=== PATIENT | female | born 1960 | race Caucasian/White ===

== ENCOUNTER → 2017-02-24 | Outpatient (CLI) | payer OTHER | LOC: MAMMO 09:57 | DX: Z12.31 Encounter for screening mammogram for malignant neoplasm of breast (principal) ==

== ENCOUNTER → 2018-03-31 | Outpatient (CLI) | payer BC, OTHER ==
--- NOTE | 2018-03-31 13:26 | US ---
EXAM DESCRIPTION: Abdomen,Complete: Ultrasound. CLINICAL HISTORY: Unspecified ABDOMINAL PAIN COMPARISON: None Available. TECHNIQUE: Transabdominal scannin-dimensional and Doppler modes. FINDINGS: Gallbladder: No stones or sludge. No wall thickening 1.9 mm. No fluid. Nontender with transducer pressure. Common bile duct: 3.0 mm, normal caliber. Liver: Normal echogenicity. Normal caliber of the portal vein and hepatopedal flow. 15.6 cm right lobe craniocaudal. Normal vascularity. Smooth capsule. Pancreas: Normal size and echogenicity. Duct not seen.. Abdominal aorta: Normal caliber from the proximal segment to the bifurcation. IVC: visualized; normal caliber. Spleen normal echogenicity; long axis measurement is 9.2 cm. Right kidney: 10.0 cm long axis. Normal cortical echogenicity and thickness. No hydronephrosis.. Left kidney: 9.2 cm long axis. Normal cortical echogenicity and thickness. No hydronephrosis. IMPRESSION: Normal ultrasound of the abdomen. Normal size and echogenicity of the abdominal organs. No ascites. Normal vascularity. Electronically signed by: Cabrera Morrison MD 03/31/2018 1:25 PM CDT
== END ==
LOC: US 07:55
PROVIDERS: ATTEND General Practice
DX: R10.9 Unspecified abdominal pain (principal)

== ENCOUNTER → 2018-05-04 | Outpatient (CLI) | payer BC ==
--- NOTE | 2018-05-08 09:38 | MAM ---
EXAM DESCRIPTION: 3D Screening BILATERAL : Digital Mammography. CLINICAL HISTORY: 57 years Female SCREEN . No family history or personal history of breast cancer. Childbirth. Hysterectomy. Currently on HRT. Bilateral breast augmentation. Lifetime risk of developing breast cancer (Tyrer-Cuzick model) is 11.4 %. COMPARISON: 2-D digital screening bilateral study 02/24/2017. TECHNIQUE: Bilateral CC and MLO projection full-field images, with Sky Implant Displacement Digital tomosynthesis mammographic technique. Bilateral digital 2-D full-field MLO RICKY images. CAD not utilized. Bilateral 2-D digital full-field images, MLO and CC projections, non-displaced, with CAD. FINDINGS: The breast parenchymal density pattern is: Extremely dense breast tissue, which lowers the sensitivity of mammography. No skin thickening or nipple retraction. Bilateral axillary lymph nodes. Bilateral subpectoral saline implants. Capsules appear intact where seen. Bilateral small microcalcifications solitary.. No new focal, stellate mass or density, focal asymmetry , and no suspicious microcalcifications bilaterally. Stable mammograms compared to prior study. Taking into account, differences in mammographic technique. IMPRESSION: BI-RADS CATEGORY: 2 - BENIGN FINDINGS. FOLLOW UP: Routine digital bilateral screening, one year interval from April 2018. Written communication explaining the IMPRESSION and follow-up, will be mailed to the patient and referring health care provider. According to the [employer], yearly mammograms are recommended starting at age 40 and continuing as long as a woman is in good health. Any breast change noted on a breast self-exam should be reported promptly to the patient's healthcare provider. Breast MRI is recommended for women with an approximately 20-25% or greater lifetime risk of breast cancer, including women with a strong family history of breast or ovarian cancer and women who have been treated for Hodgkin's disease. A negative mammographic report should not delay tissue diagnosis in patients with significant clinical history or physical findings. Extremely dense breast tissue limits the sensitivity of digital mammography. Electronically signed by: Cabrera Morrison MD 05/08/2018 9:37 AM CDT
== END ==
LOC: MAMMO 11:30
PROVIDERS: ATTEND General Practice
DX: Z12.31 Encounter for screening mammogram for malignant neoplasm of breast (principal)

== ENCOUNTER 2019-03-06 21:16 | Emergency (ER) | payer BC ==
--- NOTE | 2019-03-06 22:19 | ED.PDOC ---
History of Present Illness - General Chief Complaint: Eye Problems Stated Complaint: seeing red color with left eye Time Seen by Provider: 03/06/19 22:14 Source: patient Exam Limitations: no limitations - History of Present Illness Initial Comments: patient comes in today for sudden vision change the left eye. Patient states that the vision change began 2 hours ago. Patient states that first it looked like a worm was crawling around her visual field and now it looks almost like the lens has blood that she is trying to see through. Patient felt like her vision was about normal although on vision testing here in the emergency room it is slightly decreased at 20/70. 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 Her father suffered a severe similar symptoms and did have a retinal attachment as well. Patient has no discharge and denies any other symptomatic systemic symptoms. She has no headache, altered LOC, or elevations of blood pressures. She sees Dr. Glover from opthomology Timing/Duration: abrupt Severity: severe EENT Location: eye (L) Prearrival Treatment: no prearrival treatment Improving Factors: nothing Worsening Factors: nothing Allergies/Adverse Reactions: Allergies NO KNOWN ALLERGY Allergy (Verified 03/06/19 21:31) Home Medications: Ambulatory Orders Atorvastatin Calcium [Lipitor] 10 mg PO DAILY 03/06/19 Estradiol 0.5 mg PO DAILY 03/06/19 Latanoprost 03/06/19 Levothyroxine Sodium [Synthroid] 0.075 mg PO 0700 03/06/19 Review of Systems - Review of Systems Constitutional: States: no symptoms reported. Denies: chills, fever EENTM: States: see HPI, blurred vision. Denies: eye pain, tearing, double vision Respiratory: States: no symptoms reported. Denies: cough, short of breath, wheezing Cardiology: States: no symptoms reported. Denies: chest pain, palpitations Gastrointestinal/Abdominal: States: no symptoms reported. Denies: abdominal pain, diarrhea, nausea, vomiting Genitourinary: States: no symptoms reported Musculoskeletal: States: no symptoms reported Past Medical History (General) - Patient Medical History Hx Thyroid Disease: Yes Hx Diabetes: No Surgical History: Hysterectomy - Vaccination History Immunizations Up to Date: Yes - Female History Patient is a Female of Child Bearing Age (10 -59 yrs old): No - Triage Comment ED Triage Comment: seeing blood-like smear with left eye, denies pain Family Medical History - Family History Father Family History: Unknown Physical Exam - Physical Exam General Appearance: Alert, Anxious, No apparent distress Eye Exam: right normal, left other - unable to see clear disc on fundoscopic exam, PERRL Neck: non-tender, full range of motion, supple Cardiovascular/Respiratory: regular rate, rhythm, no M/R/G, normal peripheral pulses, no JVD, normal breath sounds, no respiratory distress Abdominal Exam: non-tender Neurologic: alert, oriented x 3 Comments: vision with glasses is 20/40 on the right and 20/70 on the left. slight visual field deficit at L bottom corner. EOMI, no tenderness to the tenriism and no swelling, injection, or discharge Progress - Progress Progress: 03/06/19 23:17 called was placed to her Optho Dr. Glover [phone] and His sales promotion officer coverage returned call. Dr. Solis states it was appropriate to have her follow up in the am. If for some reason Dr. Glover is unable to see her in the morning he will be happy to see her but no acute eval or other treatment needed at this time. Departure - Departure Clinical Impression: Visual disturbance Disposition: Discharge to Home or Self Care Condition: Fair Departure Forms: ED Discharge - Pt. Copy, Patient Portal Self Enrollment Instructions: DI for Eye Pain Referrals: Federico Pickens MD [Primary Care Provider] - 1-2 Weeks Home Medications: Ambulatory Orders Atorvastatin Calcium [Lipitor] 10 mg PO DAILY 03/06/19 Estradiol 0.5 mg PO DAILY 03/06/19 Latanoprost 03/06/19 Levothyroxine Sodium [Synthroid] 0.075 mg PO 0700 03/06/19 Additional Instructions: follow up in am with Dr. Glover, if for some reason he is not available call [phone] Dr. Solis and he will see in the am.
[2019-03-06 23:30] VITALS: BP 139/78; TEMP 97.5; O2SAT 99
== END 2019-03-06 23:30 | disposition home or self-care (01) ==
LOC: ER 21:16
DX: H53.9 Unspecified visual disturbance (principal); E07.9 Disorder of thyroid, unspecified; Z79.899 Other long term (current) drug therapy

== ENCOUNTER → 2019-05-07 | Outpatient (CLI) | payer BC ==
--- NOTE | 2019-05-08 20:50 | MAM ---
EXAM DESCRIPTION: 3D Screening BILATERAL : Digital Mammography. CLINICAL HISTORY: 58 years Female SCREEN . No complaints. No personal or family history of breast cancer. Hysterectomy less than 2 years ago. Childbirth. Currently on HRT. Bilateral breast augmentation. Lifetime risk of developing breast cancer (Tyrer-Cuzick model)(%): Left and 0.2. COMPARISON: Bilateral screening digital breast tomosynthesis 05/04/2018. TECHNIQUE: Bilateral CC and MLO projection full-field images, with Sky Implant Displacement digital tomosynthesis mammographic technique. Bilateral 2-D digital full-field images, MLO and CC projections, non-displaced. Bilateral digital 2-D full-field MLO images. CAD not available for tomosynthesis or 2-D images. FINDINGS: The breast parenchymal density pattern is: Extremely dense breast tissue, which lowers the sensitivity of mammography. No skin thickening or nipple retraction. Small solitary microcalcifications bilaterally. Bilateral axillary lymph nodes. Bilateral subglandular implants. Capsules appear intact where seen. No new focal, stellate mass or density, focal asymmetry , and no suspicious microcalcifications bilaterally. Stable mammograms compared to prior study. IMPRESSION: Benign exam. BIRAD CATEGORY: 2 BENIGN FINDINGS. RECOMMENDATIONS: FOLLOW UP: Routine digital bilateral mammographic screening, one year interval from April 2019. Written communication explaining the IMPRESSION and follow-up, will be mailed to the patient and referring health care provider. According to the [employer], yearly mammograms are recommended starting at age 40 and continuing as long as a woman is in good health. Any breast change noted on a breast self-exam should be reported promptly to the patient's healthcare provider. Breast MRI is recommended for women with an approximately 20-25% or greater lifetime risk of breast cancer, including women with a strong family history of breast or ovarian cancer and women who have been treated for Hodgkin's disease. A negative mammographic report should not delay tissue diagnosis in patients with significant clinical history or physical findings. Extremely dense breast tissue limits the sensitivity of digital mammography. Electronically signed by: Cabrera Morrison MD 05/08/2019 8:48 PM CDT
== END ==
LOC: MAMMO 10:00
PROVIDERS: ATTEND Nurse Practitioner Family
DX: Z12.31 Encounter for screening mammogram for malignant neoplasm of breast (principal)

== ENCOUNTER → 2020-05-20 | Outpatient (CLI) | payer BC ==
--- NOTE | 2020-05-21 15:42 | MAM ---
EXAM DESCRIPTION: 3D Screening BILATERAL : Digital Mammography. CLINICAL HISTORY: 59 years Female SCREENING . No complaints and no family history of breast cancer.. Lifetime risk of developing breast cancer (Tyrer-Cuzick model)(%): Not calculated COMPARISON: Bilateral screening digital breast tomosynthesis April 2019 and April 2018. TECHNIQUE: Bilateral CC and MLO projection full-field images, with Sky Implant Displacement digital tomosynthesis mammographic technique. Bilateral 2-D digital full-field images, MLO and CC projections, non-displaced. Bilateral digital 2-D full-field MLO images. Sky displacement. CAD available for 2-D images. FINDINGS: The breast parenchymal density pattern is: Extremely dense breast tissue, which lowers the sensitivity of mammography. No skin thickening or nipple retraction. Axillary lymph nodes. Bilateral retro-muscular implants. Capsules appear intact where seen. Solitary microcalcifications inferior breast bilaterally. No new focal, stellate mass or density, focal asymmetry , and no suspicious microcalcifications bilaterally. Stable mammograms compared to prior study. IMPRESSION: Benign exam. BIRAD CATEGORY: 2 BENIGN FINDINGS. RECOMMENDATIONS: FOLLOW UP: Routine digital bilateral mammographic screening, one year interval from May 2020. Written communication explaining the IMPRESSION and follow-up, will be mailed to the patient and referring health care provider. According to the [employer], yearly mammograms are recommended starting at age 40 and continuing as long as a woman is in good health. Any breast change noted on a breast self-exam should be reported promptly to the patient's healthcare provider. Breast MRI is recommended for women with an approximately 20-25% or greater lifetime risk of breast cancer, including women with a strong family history of breast or ovarian cancer and women who have been treated for Hodgkin's disease. A negative mammographic report should not delay tissue diagnosis in patients with significant clinical history or physical findings. Extremely dense breast tissue limits the sensitivity of digital mammography. Electronically signed by: Cabrera Morrison MD 05/21/2020 3:40 PM CDT
== END ==
LOC: MAMMO 10:00
PROVIDERS: ATTEND General Practice
DX: Z12.31 Encounter for screening mammogram for malignant neoplasm of breast (principal)